=== PATIENT | male | born 1960 | race Caucasian/White ===

== ENCOUNTER 2021-10-20 16:14 | Inpatient (IN) | payer BC ==
[~2021-10-20] VITALS: Ht 172.7 cm; Wt 122.5 kg
[2021-10-20 16:57] LABS: HEMOGLOBIN 16.3 gm/dl (14.0-17.5); RED BLOOD COUNT 5.5 M/UL (4.20-5.50); WHITE BLOOD COUNT 12.6 K/UL (4.5-11.0)
[2021-10-20 17:27] LABS: BUN/CREATININE RATIO 25 (0-10)
[2021-10-20] MEDS ORDERED: TOUJEO MAX300 UNIT/1 SQ (18:20)
[2021-10-21 01:59] LABS: HEMOGLOBIN 15.8 gm/dl (14.0-17.5); RED BLOOD COUNT 5.43 M/UL (4.20-5.50); WHITE BLOOD COUNT 12.8 K/UL (4.5-11.0)
[2021-10-21 02:31] LABS: BUN/CREATININE RATIO 21 (0-10)
[2021-10-21] MEDS ORDERED: ASPIRIN EC81 MG PO (13:55)
[2021-10-21] MEDS ORDERED: ATORVASTATIN CA20 MG PO (13:55)
[2021-10-22 10:28] LABS: HEMOGLOBIN 14.7 gm/dl (14.0-17.5); RED BLOOD COUNT 5.05 M/UL (4.20-5.50); WHITE BLOOD COUNT 12.7 K/UL (4.5-11.0)
[2021-10-22 11:17] LABS: BUN/CREATININE RATIO 25 (0-10)
[2021-10-23 01:56] LABS: HEMOGLOBIN 13.9 gm/dl (14.0-17.5); RED BLOOD COUNT 4.76 M/UL (4.20-5.50); WHITE BLOOD COUNT 11.6 K/UL (4.5-11.0)
[2021-10-23 02:22] LABS: BUN/CREATININE RATIO 23 (0-10)
== END 2021-10-23 11:00 | disposition home or self-care (01) | DRG 280 ==
LOC: ER1 16:14 → CDU 17:50 → PROG CARE 17:50
PROVIDERS: Emergency Medicine; Physician Assistant Medical; ADMIT Internal Medicine
PROC: 4A023N7 Measurement of Cardiac Sampling and Pressure, Left Heart, Percutaneous Approach (ICD-10-PCS; principal; 2021-10-21)
PROC: B2111ZZ Fluoroscopy of Multiple Coronary Arteries using Low Osmolar Contrast (ICD-10-PCS; 2021-10-21)
PROC: B2151ZZ Fluoroscopy of Left Heart using Low Osmolar Contrast (ICD-10-PCS; 2021-10-21)
DX: I21.4 Non-ST elevation (NSTEMI) myocardial infarction (principal); I50.21 Acute systolic (congestive) heart failure; Z68.41 Body mass index [BMI] 40.0-44.9, adult; E78.5 Hyperlipidemia, unspecified; Z20.822 Contact with and (suspected) exposure to COVID-19; E11.9 Type 2 diabetes mellitus without complications; E66.01 Morbid (severe) obesity due to excess calories; I25.5 Ischemic cardiomyopathy; I11.0 Hypertensive heart disease with heart failure; Z79.4 Long term (current) use of insulin; Z88.5 Allergy status to narcotic agent; Z88.0 Allergy status to penicillin; Z82.49 Family history of ischemic heart disease and other diseases of the circulatory system; Z82.3 Family history of stroke
CPT/HCPCS: 36415; 71045; 80048; 80053; 80061; 82550; 82553; 82962; 83036; 83735; 84484; 85025; 85027; 85610; 85730; 93005; 96374; 96375; 96376; 99152; 99153; 99285; C1769; C1894; J0583; J1644; J2250; J3010; J7040; Q9967; U0002